=== PATIENT | female | born 1945 | race Caucasian/White ===

== ENCOUNTER 2020-04-20 09:37 | Emergency (ER) | payer MEDICARE, SELFPAY ==
[2020-04-20 09:54] VITALS: BP 137/70; PULSE 77; RESP 16; TEMP 37.1; O2SAT 98
--- NOTE | 2020-04-20 10:01 | ED.FEMALEGU ---
HPI - Female Genitourinary General Chief complaint: Urogenital-Female Stated complaint: possible uti Time Seen by Provider: 04/20/20 10:01 Source: patient Mode of arrival: ambulatory Limitations: no limitations History of Present Illness HPI Narrative: Enriqueta Martini is a 74 yo female with a PMH of high cholesterol and HTN who comes to express care with complaints of vaginal itching, low-grade fever x 3 days. Patient had aortic valve replacement 3 years ago Related Data Home Medications Medication Instructions Recorded Confirmed atorvastatin [Lipitor] 40 mg PO DAILY 04/20/20 04/20/20 metoprolol tartrate [Lopressor] 25 mg PO BID 04/20/20 04/20/20 Allergies Allergy/AdvReac Type Severity Reaction Status Date / Time No Known Allergies Allergy Unknown Verified 04/20/20 09:55 Review of Systems Review of Systems: Narrative: CONSTITUTIONAL: has fever, no chills, sweats. EYES: Denies visual changes, redness, discharge. ENT: Denies rhinorrhea, congestion, sore throat, otalgia. CARDIOVASCULAR: Denies chest pain, palpitations, edema. RESPIRATORY: Denies dyspnea, wheezing, cough GASTROINTESTINAL: Denies abdominal pain, nausea, vomiting, diarrhea. GENITOURINARY:has dysuria, no hematuria, abnormal discharge SKIN: Denies rash or itching. NEUROLOGIC: Denies numbness, or focal weakness. PSYCHIATRIC: Denies anxiety or depression. [facility] Family History Family History Other Hypertension Social History Social History (Updated 04/20/20 @ 10:04 by Arline Diggs CNP) Smoking status: Never smoker Alcohol intake: current Gender identity (if verbalized by the patient): Female Comments At time of signature, I agree with nursing past medical, surgical, social and family history. There is no relevant family history pertinent to the presenting complaint. Exam Narrative: Exam Narrative: GENERAL: This is a well-nourished, well-developed patient, in mild distress. HEAD: normocephalic, atraumatic. EYES: Sclera clear/white. Vision is grossly intact. EARS: External ears normal, auditory canals clear and without drainage, TMs normal without perforation. Hearing grossly intact. NOSE: External nose normal without nasal discharge, nares without redness, no rhinorrhea. THROAT: Mucous membranes moist, NECK: Neck supple, CARDIOVASCULAR: Regular rate and rhythm without murmurs, gallops, or rubs. RESPIRATORY: Clear to auscultation. Breath sounds equal bilaterally. No wheezes, rales, or rhonchi. GASTROINTESTINAL: Abdomen soft, non-tender, SKIN: warm, intact with no suspicious lesions or rash, good texture and turgor. NEURO: awake, alert, and oriented to person, place and time. There were no obvious focal neurologic abnormalities. Steady gait EXTREMITIES: Normal range of motion. BACK: Nontender without deformity Course Course Emergency Course: UA- + for leukocytes, blood, nitrite- started on keflex Discussed antibiotic treatment of UTI and precautions to avoid them. Reinforced hydration Vital Signs Vital signs: Vital Signs Temperature 98.7 F 04/20/20 09:54 Pulse Rate 77 04/20/20 09:54 Respiratory Rate 16 04/20/20 09:54 Blood Pressure 137/70 04/20/20 09:54 Pulse Oximetry 98 04/20/20 09:54 Temperature 98.7 F 04/20/20 09:54 Pulse Rate 77 04/20/20 09:54 Respiratory Rate 16 04/20/20 09:54 Blood Pressure 137/70 04/20/20 09:54 Pulse Oximetry 98 04/20/20 09:54 MDM - Female Genitourinary Differential Diagnosis Differential diagnosis: Likely urinary tract infection, vaginitis, cystitis and other Lab Data Labs: Urine Glucose Negative Reference Range: Negative Urine Bilirubin Negative Reference Range: Negative Urine Ketone Negative Reference Range: Negative Urine Specific [place] 1.020 Reference Range:1.001-1.035 Urine B
== END 2020-04-20 10:18 | disposition home or self-care (01) ==
PROVIDERS: Emergency Provider Nurse Practitioner; PCP Family Medicine Adolescent Medicine
DX: N30.01 Acute cystitis with hematuria (principal); E78.00 Pure hypercholesterolemia, unspecified; I10 Essential (primary) hypertension; Z95.4 Presence of other heart-valve replacement
CPT/HCPCS: 81003; 87077; 87086; 87088; 87186; 99213; G0463

== ENCOUNTER 2020-09-18 16:13 | Emergency (ER) | payer MEDICARE, SELFPAY ==
--- NOTE | 2020-09-18 16:17 | ED.GENADULT ---
HPI - General Adult General Chief complaint: Urogenital-Female Stated complaint: poss uti Time Seen by Provider: 09/18/20 16:16 Source: patient Mode of arrival: ambulatory Limitations: no limitations History of Present Illness HPI narrative: 74-year-old female patient presents to the [facility] with complaints of urinary symptoms for the past 3 days. Patient states she has had some burning pain with urination as well as some lower abdominal pressure. Denies any fevers, body aches or chills. Denies any low back pain. Denies any nausea, vomiting or diarrhea. Patient states she had similar symptoms to this back in March or April and states she was treated for UTI with an antibiotic and her symptoms went away. Related Data Home Medications Medication Instructions Recorded Confirmed atorvastatin [Lipitor] 40 mg PO DAILY 04/20/20 04/20/20 metoprolol tartrate [Lopressor] 25 mg PO BID 04/20/20 04/20/20 Allergies Allergy/AdvReac Type Severity Reaction Status Date / Time No Known Allergies Allergy Unknown Verified 04/20/20 09:55 Review of Systems Review of Systems: Narrative: CONSTITUTIONAL: Denies fever, chills, or sweats. EYES: Denies visual changes, redness, or discharge. ENT: Denies rhinorrhea, congestion, sore throat, or otalgia. CARDIOVASCULAR: Denies chest pain, palpitations, or edema. RESPIRATORY: Denies cough or dyspnea. GASTROINTESTINAL: Denies abdominal pain, nausea, vomiting, or diarrhea. GENITOURINARY: Positive dysuria, denies hematuria. Positive burning pain with urination SKIN: Denies rash or itching. MUSCULOSKELETAL: Denies back pain, joint pain, or myalgia. NEUROLOGIC: Denies headache, numbness, or weakness. PSYCHIATRIC: Denies anxiety or depression. [facility] Past Medical History Medical History (Updated 09/18/20 @ 16:45 by ANILA Martinez) Aortic aneurysm GI bleed High cholesterol Hypertension Surgical History Surgical History (Updated 09/18/20 @ 16:18 by ANILA Martinez) Aortic valve replaced H/O tubal ligation History of appendectomy Family History Family History (Updated 09/18/20 @ 16:18 by ANILA Martinez) Other Heart disease Hypertension Social History Social History Smoking status: Never smoker Alcohol intake: current Gender identity (if verbalized by the patient): Female Comments At the time of my signature I agree with nursing past medical history, surgical, social, and family history. There is no relevant family history pertinent to the presenting complaint. Exam Narrative: Exam Narrative: GENERAL: Well-appearing, well-nourished, and in no acute distress. HEAD: Normocephalic, atraumatic. EYES: PERRLA and EOMI. ENT: Nares clear, no rhinorrhea or epistaxis. Mucous membranes moist. NECK: Supple. No lymphadenopathy CHEST: Clear to auscultation. No respiratory distress. HEART: Regular rate and rhythm. No murmur heard. Normal peripheral pulses. ABDOMEN: Soft, nontender, nondistended, normal active bowel sounds. No CVA tenderness on percussion EXTREMITIES: Normal range of motion. No edema. SKIN: Warm, dry, no rash. NEURO: No focal deficits. Alert and oriented x3. Course Vital Signs Vital signs: Vital Signs Temperature 36.3 C L 09/18/20 16:22 Pulse Rate 69 09/18/20 16:22 Respiratory Rate 16 09/18/20 16:22 Blood Pressure 175/83 H 09/18/20 16:22 Pulse Oximetry 98 09/18/20 16:22 Temperature 36.3 C L 09/18/20 16:22 Pulse Rate 69 09/18/20 16:22 Respiratory Rate 16 09/18/20 16:22 Blood Pressure 175/83 H 09/18/20 16:22 Pulse Oximetry 98 09/18/20 16:22 Vital signs reviewed The patient has been informed that they may have pre-hypertension or Hypertension based on a BP reading in the department. I recommend that the patient call the primary care provider listed on their discharge instructions or a physician of their choice this week to arrange follow up for further evalu
[2020-09-18 16:22] VITALS: BP 175/83; PULSE 69; RESP 16; TEMP 36.3; O2SAT 98
== END 2020-09-18 16:47 | disposition home or self-care (01) ==
PROVIDERS: Emergency Provider Nurse Practitioner Family; PCP Family Medicine Adolescent Medicine
DX: N30.01 Acute cystitis with hematuria (principal); E78.00 Pure hypercholesterolemia, unspecified; I10 Essential (primary) hypertension; Z95.2 Presence of prosthetic heart valve
CPT/HCPCS: 81003; 87086; 87088; 99213; G0463